=== PATIENT | female | born 2000 ===

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

== ENCOUNTER → 2022-04-18 13:21 | Outpatient (BNVA) | payer OTHER, SELFPAY | PROVIDERS: PCP Specialist; Visit Provider Psychiatry & Neurology Neurology | DX: G43.109 Migraine with aura, not intractable, without status migrainosus (principal); Z79.899 Other long term (current) drug therapy | CPT/HCPCS: 99212 ==

== ENCOUNTER → 2022-05-23 08:10 | Outpatient (BNVA) | payer OTHER, SELFPAY | PROVIDERS: PCP Specialist; Visit Provider Nurse Practitioner Family | DX: G43.109 Migraine with aura, not intractable, without status migrainosus (principal); Z79.899 Other long term (current) drug therapy | CPT/HCPCS: 99212 ==